=== PATIENT | female | born 1995 | race Native Hawaiian/Other Pacific Islander ===

== ENCOUNTER 2020-04-19 14:05 | Outpatient (CLI) | payer OTHER | END 2020-04-19 20:02 | disposition home or self-care (01) | LOC: LAB 14:05 | PROVIDERS: ATTEND Nurse Practitioner Family | DX: U07.1 COVID-19 (principal); R05 Cough; R51.9 Headache, unspecified; R43.2 Parageusia | CPT/HCPCS: 87635; G2023; U0003 ==

== ENCOUNTER 2020-04-27 11:47 | Outpatient (CLI) | payer OTHER | END 2020-04-27 20:16 | disposition home or self-care (01) | LOC: LAB 11:47 | PROVIDERS: ATTEND Nurse Practitioner Family | DX: R05 Cough (principal); R51.9 Headache, unspecified; R43.2 Parageusia; Z11.59 Encounter for screening for other viral diseases | CPT/HCPCS: 87635; G2023; U0003 ==